=== PATIENT | male | born 1965 | race Caucasian/White ===

== ENCOUNTER 2017-03-07 05:03 | Emergency (ER) | payer OTHER ==
[~2017-03-07] VITALS: Ht 165.1 cm; Wt 110.2 kg
[2017-03-07 05:54] LABS: EOSINOPHIL (%) 0 % (0-5); HEMATOCRIT 47.5 % (38.0-50.0); IMMATURE GRANULOCYTE (%) 0.4 % (0.0-0.7); IMMATURE GRANULOCYTE COUNT 0.1 K/uL; INSTRUMENT ABS NEUTROPHIL CT 9.8 K/uL; LYMPHOCYTE COUNT 1.3 K/uL (1.0-2.8); MCH 28.4 PG (29.0-34.0); MCHC 34.1 G/DL (30.0-36.0); MCV 83.3 FL (86-99); MEAN PLAT.VOLUME 9.7 uM^3 (9.0-12.4); MONOCYTE (%) 7.6 % (3-12); MONOCYTE COUNT 0.9 K/uL (0-0.8); NEUTROPHIL (%) 81.5 % (45-76); NEUTROPHIL COUNT 9.8 K/uL (1.8-6.4); PLATELET COUNT 203 K/uL (156-360); RBC DIS.WIDTH-CV 12.4 % (11.8-14.6); RBC DIS.WIDTH-SD 37.9 % (39-53); WHITE BLOOD COUNT 12.1 K/uL (4.1-10.2)
[2017-03-07 06:02] LABS: CHLORIDE 99 mEq/L (99-109); POTASSIUM 3.9 mEq/L (3.7-5.4); SODIUM 136 mEq/L (136-147)
[2017-03-07 06:04] LABS: GLUCOSE 115 mg/dL (70-99)
[2017-03-07 06:05] LABS: ANION GAP 12 MEQ/L (2-14)
[2017-03-07 06:09] LABS: UREA NITROGEN (BUN) 14 mg/dL (9-23)
[2017-03-07 06:11] LABS: GFR ESTIMATE (CALCULATED) > 59 mL/min/
[2017-03-07 06:40] LABS: TROP-I INTERPRETATION NEGATIVE; TROPONIN-I < 0.01 ng/mL (0.0-0.30)
[2017-03-07 08:10] LABS: ADD MIUA? NO; BILIRUBIN NEGATIVE; BLOOD NEGATIVE; COLOR YELLOW ((YELLOW)); GLUCOSE (STRIP) NEGATIVE; KETONES NEGATIVE; LEUKOCYTES NEGATIVE; NITRITE NEGATIVE; PROTEIN (STRIP) 30; SPECIFIC GRAVITY 1.021 (1.000-1.030); UCUL ADDED? NO; UROBILINOGEN 0.2 MG/DL (0.2-1.0)
[2017-03-07 11:55] VITALS: BP 134/84
[2017-03-08] MEDS ORDERED: ROXICODONE30 MG PO (15:24)
[2017-03-08] MEDS ORDERED: DOLOPHINE HCL10 MG PO (15:25)
[2017-03-08] MEDS ORDERED: FENTANYL1 EAC2 TD (15:25)
== END 2017-03-07 11:50 | disposition home or self-care (01) ==
LOC: EME → EDBD 05:03 → EME 11:50
PROVIDERS: Emergency Medicine
DX: G89.29 Other chronic pain (principal); M54.6 Pain in thoracic spine; Z79.891 Long term (current) use of opiate analgesic
CPT/HCPCS: 71275; 80048; 81003; 83605; 84484; 85025; 85379; 87040; 87077; 87147; 87186; 87801; 93005; 99281; 99285; J2270; J3010; J7050

== ENCOUNTER 2017-03-08 02:01 | Inpatient (IN) | payer OTHER ==
[~2017-03-08] VITALS: Ht 165.1 cm; Wt 111.8 kg
[2017-03-08 02:57] LABS: EOSINOPHIL (%) 0 % (0-5); HEMATOCRIT 42.9 % (38.0-50.0); IMMATURE GRANULOCYTE (%) 0.7 % (0.0-0.7); IMMATURE GRANULOCYTE COUNT 0.1 K/uL; INSTRUMENT ABS NEUTROPHIL CT 13.2 K/uL; LYMPHOCYTE COUNT 0.8 K/uL (1.0-2.8); MCH 28.7 PG (29.0-34.0); MCHC 34.3 G/DL (30.0-36.0); MCV 83.6 FL (86-99); MEAN PLAT.VOLUME 9.8 uM^3 (9.0-12.4); MONOCYTE (%) 6.6 % (3-12); NEUTROPHIL (%) 87.4 % (45-76); NEUTROPHIL COUNT 13.2 K/uL (1.8-6.4); PLATELET COUNT 170 K/uL (156-360); RBC DIS.WIDTH-CV 12.4 % (11.8-14.6); RED BLOOD COUNT 5.13 M/uL (4.00-5.50); WHITE BLOOD COUNT 15.1 K/uL (4.1-10.2)
[2017-03-08 03:13] LABS: CHLORIDE 97 mEq/L (99-109); POTASSIUM 3.8 mEq/L (3.7-5.4); SODIUM 132 mEq/L (136-147)
[2017-03-08 03:14] LABS: GLUCOSE 126 mg/dL (70-99)
[2017-03-08 03:16] LABS: ANION GAP 11 MEQ/L (2-14)
[2017-03-08 03:18] LABS: GFR ESTIMATE (CALCULATED) > 59 mL/min/
[2017-03-08 03:19] LABS: UREA NITROGEN (BUN) 14 mg/dL (9-23)
[2017-03-08 04:54] LABS: ALKALINE PHOSPHATASE 56 IU/L (3-129); DIRECT BILIRUBIN 0.4 mg/dL (0.0-0.3)
[2017-03-08 04:55] LABS: LIPASE 19 U/L (1.0-51.0)
[2017-03-08 05:17] LABS: ADD MIUA? NO; BILIRUBIN NEGATIVE; BLOOD NEGATIVE; COLOR YELLOW ((YELLOW)); GLUCOSE (STRIP) NEGATIVE; KETONES NEGATIVE; LEUKOCYTES NEGATIVE; NITRITE NEGATIVE; PROTEIN (STRIP) 30; UCUL ADDED? NO; UROBILINOGEN 0.2 MG/DL (0.2-1.0)
[2017-03-08 05:19] LABS: INFLUENZA A VIRAL ANTIGEN NEGATIVE; INFLUENZA B VIRAL ANTIGEN NEGATIVE
[2017-03-08 05:33] LABS: INTERNAL CONTROL VALID? YES; MONOSPOT (MONONUCLEOSIS SEROL) NEGATIVE
[2017-03-08 06:41] LABS: SPECIFIC GRAVITY 1.067 (1.000-1.030)
[2017-03-08 09:13] VITALS: BP 96/51
[2017-03-08 09:14] VITALS: BP 94/55
[2017-03-08 11:50] VITALS: BP 130/80
[2017-03-08] MEDS ORDERED: ROXICODONE30 MG PO (15:24)
[2017-03-08] MEDS ORDERED: FENTANYL1 EAC2 TD (15:25)
[2017-03-08] MEDS ORDERED: DOLOPHINE HCL10 MG PO (15:25)
[2017-03-08 16:34] VITALS: BP 126/74
[2017-03-08 19:36] VITALS: BP 125/78
[2017-03-08 23:38] VITALS: BP 123/75
[2017-03-09 08:02] LABS: HEMATOCRIT 37.7 % (38.0-50.0); RED BLOOD COUNT 4.45 M/uL (4.00-5.50); WHITE BLOOD COUNT 8.1 K/uL (4.1-10.2)
[2017-03-09 08:03] LABS: MCH 28.3 PG (29.0-34.0); MCHC 33.4 G/DL (30.0-36.0); MCV 84.7 FL (86-99); MEAN PLAT.VOLUME 9.2 uM^3 (9.0-12.4); PLATELET COUNT 161 K/uL (156-360); RBC DIS.WIDTH-CV 12.5 % (11.8-14.6); RBC DIS.WIDTH-SD 38.9 % (39-53)
[2017-03-09 08:13] VITALS: BP 138/87
[2017-03-09 08:21] LABS: ANION GAP 8 MEQ/L (2-14); CHLORIDE 100 MEQ/L (99-109); GFR ESTIMATE (CALCULATED) > 59 mL/min/; GLUCOSE 121 mg/dL (70-99); MAGNESIUM 2.2 mg/dl (1.3-2.7); POTASSIUM 3.8 MEQ/L (3.7-5.4); SAMPLE HEMOLYSIS CHECK 0; SAMPLE ICTERIC CHECK 0; SAMPLE LIPEMIA CHECK 0; SODIUM 134 MEQ/L (136-147); UREA NITROGEN (BUN) 11 mg/dL (9-23)
[2017-03-09 16:30] VITALS: BP 128/78
[2017-03-10 00:09] VITALS: BP 140/87
[2017-03-10 03:46] VITALS: BP 137/90
[2017-03-10 08:46] VITALS: BP 176/90
[2017-03-10 16:45] VITALS: BP 164/86
[2017-03-10 23:53] VITALS: BP 178/95
[2017-03-11 08:40] VITALS: BP 162/78
[2017-03-11 15:15] VITALS: BP 138/90
[2017-03-11 23:27] VITALS: BP 122/88
[2017-03-12 07:11] VITALS: BP 170/94
[2017-03-12 09:52] LABS: HEMATOCRIT 42.4 % (38.0-50.0); MCH 29.7 PG (29.0-34.0); MCHC 35.8 G/DL (30.0-36.0); MCV 82.8 FL (86-99); NRBC (%) 0.3 /100 WBC (0-0); RBC DIS.WIDTH-CV 12.6 % (11.8-14.6); RBC DIS.WIDTH-SD 38.2 % (39-53); RED BLOOD COUNT 5.12 M/uL (4.00-5.50); WHITE BLOOD COUNT 7.9 K/uL (4.1-10.2)
[2017-03-12 09:54] LABS: PLATELET COUNT 249 K/uL (156-360)
[2017-03-12 10:44] LABS: ANION GAP 12 MEQ/L (2-14); CHLORIDE 99 MEQ/L (99-109); GFR ESTIMATE (CALCULATED) > 59 mL/min/; GLUCOSE 131 mg/dL (70-99); SAMPLE HEMOLYSIS CHECK 0; SAMPLE ICTERIC CHECK 0; SAMPLE LIPEMIA CHECK 0; SODIUM 137 MEQ/L (136-147); UREA NITROGEN (BUN) 9 mg/dL (9-23)
[2017-03-12 15:40] VITALS: BP 133/95
[2017-03-12 23:20] VITALS: BP 135/100
[2017-03-13 05:17] LABS: HEMATOCRIT 42.4 % (38.0-50.0); MCH 29.2 PG (29.0-34.0); MCHC 35.1 G/DL (30.0-36.0); MCV 83.1 FL (86-99); MEAN PLAT.VOLUME 9.9 uM^3 (9.0-12.4); NRBC (%) 0.4 /100 WBC (0-0); PLATELET COUNT 291 K/uL (156-360); RBC DIS.WIDTH-CV 12.6 % (11.8-14.6); RBC DIS.WIDTH-SD 38.2 % (39-53); WHITE BLOOD COUNT 10.4 K/uL (4.1-10.2)
[2017-03-13 05:28] LABS: CHLORIDE 104 mEq/L (99-109); POTASSIUM 3.2 mEq/L (3.7-5.4); SODIUM 139 mEq/L (136-147)
[2017-03-13 05:30] LABS: GLUCOSE 115 mg/dL (70-99)
[2017-03-13 05:31] LABS: ANION GAP 11 MEQ/L (2-14)
[2017-03-13 05:34] LABS: GFR ESTIMATE (CALCULATED) > 59 mL/min/
[2017-03-13 05:35] LABS: UREA NITROGEN (BUN) 7 mg/dL (9-23)
[2017-03-13 08:14] LABS: MAGNESIUM 2.4 mg/dL (1.3-2.7)
[2017-03-13 08:27] VITALS: BP 144/93
[2017-03-13 16:26] VITALS: BP 133/87
[2017-03-14 00:11] VITALS: BP 135/91
[2017-03-14 06:21] LABS: HEMATOCRIT 43.5 % (38.0-50.0); MCH 28.4 PG (29.0-34.0); MCHC 33.8 G/DL (30.0-36.0); MEAN PLAT.VOLUME 9.7 uM^3 (9.0-12.4); PLATELET COUNT 353 K/uL (156-360); RBC DIS.WIDTH-CV 13.1 % (11.8-14.6); RBC DIS.WIDTH-SD 40.1 % (39-53); RED BLOOD COUNT 5.18 M/uL (4.00-5.50); WHITE BLOOD COUNT 8.3 K/uL (4.1-10.2)
[2017-03-14 08:22] VITALS: BP 146/93
[2017-03-14 09:42] VITALS: BP 146/93
[2017-03-14] MEDS ORDERED: DOCUSATE SODIU100 MG PO (10:12)
[2017-03-14] MEDS ORDERED: POLYETHYLENE GL17 GM PO (10:12)
[2017-03-14] MEDS ORDERED: FAMOTIDINE20 MG PO (10:13)
[2017-03-14] MEDS ORDERED: OXYCODONE HCL15 MG PO (14:59)
[2017-03-14] MEDS ORDERED: DOLOPHINE HCL10 MG PO (14:59)
[2017-03-14] MEDS ORDERED: FENTANYL1 EAC2 TD (14:59)
[2017-03-14] MEDS ORDERED: METHADONE10 MG PO (14:59)
== END 2017-03-14 18:18 | disposition home or self-care (01) | DRG 871 ==
LOC: EME 02:01 → 3EAST 05:32 → EDOF 05:32 → ENRESERV 05:34 → 3EAST 09:06
PROVIDERS: Emergency Medicine; Hospitalist; Internal Medicine; Physician Assistant
DX: A41.01 Sepsis due to Methicillin susceptible Staphylococcus aureus (principal); M51.14 Intervertebral disc disorders with radiculopathy, thoracic region; J18.9 Pneumonia, unspecified organism; Y95 Nosocomial condition; E87.6 Hypokalemia; M79.1 Myalgia; R23.3 Spontaneous ecchymoses; G89.29 Other chronic pain; M54.5 Low back pain; R30.9 Painful micturition, unspecified; R26.2 Difficulty in walking, not elsewhere classified; E66.9 Obesity, unspecified; Z68.41 Body mass index [BMI] 40.0-44.9, adult; Z86.14 Personal history of Methicillin resistant Staphylococcus aureus infection; Z98.1 Arthrodesis status; Z83.3 Family history of diabetes mellitus; Z79.891 Long term (current) use of opiate analgesic
CPT/HCPCS: 71010; 71020; 71275; 72100; 72129; 72132; 72158; 74000; 76770; 80048; 80076; 80170; 81003; 82550; 83605; 83690; 83735; 84484; 85025; 85027; 85379; 85651; 86140; 86308; 87040; 87077; 87086; 87147; 87186; 87502; 87651 90; 87801; 90686; 93005; 93306; 94799; 97530 GO; 97530 GP; 99281; 99285; J1170; J1580; J1644; J1885; J2060; J2270; J2405; J2543; J3010; J3370; J7030; J7050; S0032